=== PATIENT | female | born 1955 ===

== ENCOUNTER 2016-09-20 16:21 | Inpatient (IN) | payer MEDICARE, OTHER ==
[2016-09-20 16:33] VITALS: BMI 25.7
--- NOTE | 2016-09-20 16:50 | CT ---
PROCEDURE: CT HEAD WITHOUT CONTRAST. HISTORY: Code Stroke COMPARISON: None available. TECHNIQUE: Axial computed tomography images were obtained through the head/brain without intravenous contrast. Radiation dose: Total exam DLP = 858 mGy-cm. This CT exam was performed using one or more of the following dose reduction techniques: Automated exposure control, adjustment of the mA and/or kV according to patient size, and/or use of iterative reconstruction technique. FINDINGS: HEMORRHAGE: No intracranial hemorrhage. BRAIN: There are multiple hyperdense masses in the left frontal and parietal lobe in association with calcifications. These also involve the temporal lobe. There is mass effect with slight midline shift. No atrophy or chronic microvascular ischemic changes. VENTRICLES: Unremarkable. No hydrocephalus. CALVARIUM: Unremarkable. PARANASAL SINUSES: Unremarkable as visualized. No significant inflammatory changes. MASTOID AIR CELLS: Unremarkable as visualized. No inflammatory changes. OTHER FINDINGS: None. IMPRESSION: Multiple hyperdense masses within the left parietal, frontal and temporal lobe with calcifications and slight mass effect with midline shift. These are nonspecific in appearance. Findings could represent malignancy or a congenital/developmental abnormality. Recommend further evaluation with MRI of the brain with and without contrast. No intracranial hemorrhage.
[2016-09-20] MEDS ORDERED: Morphine 4 MG/ML VIAL ONE (16:55)
--- NOTE | 2016-09-20 16:59 | C.PDOC ---
History Of Present Illness Patient is a 61 year old female brought in by EMS for a complaint of AMS. Patient has a mild increased left facial droop and left body weakness. Patient has residual weakness from a prior stroke. Patient has been treated in the past by Dr. Martinez from neurology. Patient is currently complaining of a headache pain, denies any recent trauma, fever, nausea, or vomiting. Time Seen by Provider: 09/20/16 16:32 Chief Complaint (Nursing): Weakness/Neurological Deficit History Per: Patient, EMS History/Exam Limitations: no limitations Onset/Duration Of Symptoms: Hrs Current Symptoms Are (Timing): Still Present Recent travel outside of the [place]: No - Symptoms Of CVA Associated Symptoms: Other (Increased left facial droop, increased left sided weakness.). denies: New Vision Deficit(Left), New Vision Deficit(Right) Recent Aspirin Use: Unknown Current Coumadin Use?: Unknown Recent Head Trauma: No Past Medical History Reviewed: Historical Data, Nursing Documentation, Vital Signs Vital Signs: Last Vital Signs Temp 98.0 F 09/20/16 16:21 Pulse 77 09/20/16 17:13 Resp 18 09/20/16 17:13 BP 114/59 L 09/20/16 17:13 Pulse Ox 98 09/20/16 18:01 - Medical History PMH: CVA - [facility] Procedures RESECTION OF GALLBLADDER, PERCUTANEOUS ENDOSCOPIC APPROACH (10/08/15) Family History: States: Unknown Family Hx - Social History Hx Tobacco Use: No Hx Alcohol Use: No Hx Substance Use: No - Immunization History Hx Tetanus Toxoid Vaccination: No Hx Influenza Vaccination: No Hx Pneumococcal Vaccination: No Review Of Systems Except As Marked, All Systems Reviewed And Found Negative. Constitutional: Negative for: Fever Gastrointestinal: Negative for: Nausea, Vomiting Neurological: Positive for: Weakness (Left sided), Altered Mental Status, Other (Left sided facial droop) Physical Exam - Physical Exam Appears: Non-toxic Skin: Normal Color, Warm, Dry Head: Atraumatic, Normacephalic Eye(s): bilateral: Normal Inspection, PERRL, EOMI Oral Mucosa: Moist Chest: Symmetrical, No Tenderness Cardiovascular: Rhythm Regular, No Murmur Respiratory: Normal Breath Sounds, No Rales, No Rhonchi, No Wheezing Gastrointestinal/Abdominal: Soft, No Tenderness Extremity: Other (Normal strength x4 ) Neurological/Psych: Normal Speech, Other (Awake, alert. Left sided facial droop. ) ED Course And Treatment - Laboratory Results Result Diagrams: 09/20/16 16:52 09/20/16 16:52 Lab Interpretation: Normal (bnp/trop neg) ECG: Interpreted By Me ECG Rhythm: Sinus Rhythm ECG Interpretation: Normal Rate From EC O2 Sat by Pulse Oximetry: 98 (Room air) Pulse Ox Interpretation: Normal Progress Note: Code stroke called. EKG, blood work, CXR, and urinalysis ordered. Will call Dr. martinez to discuss patient. Reevaluation Time: 17:54 Reassessment Condition: Improved (headache improved, remains neuro intact) - Physician Consult Information Outcome Of Conversation: 1640 d/w NSGY- Dr. Bowers- no new findings, ok to tele obs, will follow. 1700: failed attempts to d/w pt's Neurologist- Mansoor Martinez. 1800: d/w Hospitalits- Dr. Montero- covering pt's for Dr. Oconnor- ok to Tele Obs NIHSS Stroke Scale - Date/Time Evaluation Performed Date Performed: 09/20/16 Time Performed: 16:20 When Was NIHSS Performed: Baseline - How Severe is the Stoke Level of Consciousness: 1=Drowsy LOC to Questions: 0=Both comments correct LOC to commands: 0=Obeys both correctly Best Gaze: 0=Normal Visual: 0=No visual loss Facial: 0=Normal Motor Arm - Left: 0=No drift Motor Arm - Right: 0=No drift Motor Leg - Left: 0=No drift Motor Leg - Right: 0=No drift Limb Ataxia: 0=Absent Sensory: 0=Normal Best Language: 1=Mild to moderate aphasia Dysarthia: 0=Normal articulation Extinction & Inattention (Neglect): 0=Normal, no object Score: 2 Severity Of Stroke: 1-4= Minor Stroke rTPA Inclusion/Exclusion - Refusal of Treatment Patient Refused Treatment: No - Inclusion Criteria for Altepase Patient is 18 years or Older: Yes The Clinical Diagnosis of Ischemic Stroke That is Causing a Potentially Disabling Neurological Deficit: No Time of Onset is Well Established to be Less Than 270 Minute Before Treatment Would Begin: No Risk/Benefit Discussed With Patient/Family Member Present: No - Exclusion Criteria for Altepase Uncontrolled Hypertension at Time of Treatment (Systolic BP above 185 or Diastolic BP above 110 mmHg): No History of: Vascular Malformation Active Internal Bleeding: No Known Bleeding Diathesis Including but Not Limited to: Platelets Below 100,000/ mm,PTT Above 40 sec After Heparin Use, Current Use of Oral Anitcoagulant With INR Greater Than 1.7 or PT Greater Than 15 secs: No Evidence of an Intracranial Hemorrhage: No Evidence of Major Acute Infarct With Signs Greater Than 1/3 MCA Territory: No - Warning to TPA With Conditions Following Conditions Weighed Against Anticipated Benefit: Yes Condition: Stroke Serevity Too Mild Medical Decision Making Medical Decision Making: ? mild change of mental status with large brain masses ? AVM's per NSGY read- no acute bleed but also no significant neuro changes on eval- TPA deferred Disposition Doctor Will See Patient In The: Hospital Counseled Patient/Family Regarding: Studies Performed, Diagnosis - Disposition Disposition: HOSPITALIZED Disposition Time: 17:57 Condition: GOOD - POA Core Measure Indicators: Code Stroke - Clinical Impression Clinical Impression: Headache, Brain mass - Scribe Statement The provider has reviewed the documentation as recorded by the Prestonibrashawn Guy All medical record entries made by the Chris were at my direction and personally dictated by me. I have reviewed the chart and agree that the record accurately reflects my personal performance of the history, physical exam, medical decision making, and the department course for this patient. I have also personally directed, reviewed, and agree with the discharge instructions and disposition.
[2016-09-20 17:00] LABS: BASO % 0.3 % (0.0-2.0); EOS % 0.1 % (0.0-4.0); HEMATOCRIT 42.7 % (34.0-47.0); LYMPH # 1.2 K/uL (1.0-4.3); MEAN CELL VOLUME 91.6 fL (81.0-99.0); MEAN CORPUSCULAR HEMOGLOBIN 31.1 pg (27.0-31.0); MEAN PLATELET VOLUME 8.9 fL (7.2-11.7); MONO # 0.4 K/uL (0.0-0.8); MONO % 4.7 % (0.0-10.0); RED CELL DISTRIBUTION WIDTH 13.2 % (11.5-14.5); WHITE BLOOD COUNT 9.3 K/uL (4.8-10.8)
[2016-09-20 17:09] LABS: CHLORIDE 95 mmol/L (98-107); SODIUM 133 mmol/L (132-148)
[2016-09-20 17:10] LABS: POTASSIUM 3.9 mmol/L (3.6-5.2)
[2016-09-20 17:11] LABS: CHOLESTEROL 240 mg/dL (0-199); GFR AFRICAN-AMERICAN > 60
[2016-09-20 17:12] LABS: ALB/GLOB RATIO 1.2 (1.0-2.1); ALKALINE PHOSPHATASE 86 U/L (38-126); ALT/SGPT 63 U/L (9-52); AST/SGOT 48 U/L (14-36); BILIRUBIN,TOTAL 0.6 mg/dL (0.2-1.3); BLOOD UREA NITROGEN 12 mg/dL (7-17); CARBON DIOXIDE 28 mmol/L (22-30); GLUCOSE,RANDOM 128 mg/dL (65-105)
--- NOTE | 2016-09-20 17:28 | RAD ---
HISTORY: adm COMPARISON: Chest x-ray performed 10/08/15 TECHNIQUE: Chest, one view. FINDINGS: LUNGS: Interstitial prominence may reflect infection or edema. Patchy airspace opacity at the left lung base with a suggestion of a small left pleural effusion. Right midlung atelectasis. No definite pneumothorax. CARDIOVASCULAR: Heart size appears top normal. OSSEOUS STRUCTURES: Mild degenerative changes. VISUALIZED UPPER ABDOMEN: Unremarkable. OTHER FINDINGS: None. IMPRESSION: Mild interstitial prominence may reflect infection or edema. Patchy airspace opacity at the left lung base with probable small left pleural effusion. Right midlung atelectasis.
[2016-09-20] MEDS ORDERED: Aspirin 325 mg EC Tablets PO STA (18:15)
--- NOTE | 2016-09-20 20:08 | CP.PCM.HP ---
<Todd Hernandez - Last Filed: 09/20/16 20:04> History of Present Illness - History of Present Illness History of Present Illness: cc: "worsened facial droop and weakness" HPI: Patient is a 61 year old female with PMHx of seizures, hx of CVA in 2004, AVMs that presented to the ED for worsening facial droop and weakness. Patient is awake and alert but unable to answer questions appropriately. Daughter at bedside giving history. Patient reported a headache around 9am today, which was relatively mild and similar to other headaches she normally has had. The daughter went to work and returned around noon to serve the patient lunch. At that time, the patient was complaining of a very severe headache, worse than she 's ever had. The daughter said that the patient had residual mild left sided facial droop and right UE and LE weakness from the previous stroke, but during lunch, she noticed that the facial worsened significantly, and that the patient was unable to lift the spoon to her mouth to drink the soup. At baseline, patient is, at times, forgetful and not fully oriented. On admission, patient did not know her own name, or her daughters name. She was able to identify that the person at bedside was her daughter, and recalled she had another daughter. Not oriented to time or place. Last visit to her neurologist, Dr. Mansoor Andrews, was about 2-3 months ago. Patient's AVM was followed at [facility], by a neurosurgeon , Dr. Charles Shanks, last seen 2-3 years ago, who said that he did not feel comfortable doing any surgeries for her due to the high risk of complications. PMHx: As stated above PSHx: Cholecystectomy Allergies: Denies Social hx: Hx of smoking for 40+ years ~ 1/2 ppd. Social alcohol use. Denies drug use. Lives at home with daughter. Previously ambulatory and active. Present on Admission - Present on Admission Any Indicators Present on Admission: No Review of Systems - Constitutional Constitutional: Headache. absent: Chills, Weight Loss, Weakness - Cardiovascular Cardiovascular: absent: Chest Pain, Claudication, Irregular Heart Rhythm, Leg Edema, Palpitations, Pedal Edema - Respiratory Respiratory: absent: Cough, Dyspnea, Hemoptysis, Dyspnea on Exertion, Wheezing - Gastrointestinal Gastrointestinal: absent: Abdominal Pain, Constipation, Diarrhea, Nausea, Vomiting - Genitourinary Genitourinary: absent: Difficulty Urinating, Dysuria - Musculoskeletal Musculoskeletal: absent: Myalgias, Numbness, Tingling - Integumentary Integumentary: absent: Sores, Striae, Swelling - Neurological Neurological: Abnormal Speech, Confusion, Focal Weakness, Headaches, Lack of Coordination, Memory Loss, Weakness. absent: Syncope, Tingling, Tremor - Psychiatric Psychiatric: absent: Anxiety, Panic Attacks, Suicidal Ideation - Endocrine Endocrine: absent: Fatigue, Palpitations Past Patient History - Past Medical History & Family History Past Medical History?: Yes - Past Social History Smoking Status: Former Smoker Chewing Tobacco Use: No Cigar Use: No Alcohol: None Drugs: Denies Home Situation {Lives}: With Family - CARDIAC Hx Cardiac Disorders: No - PULMONARY Hx Respiratory Disorders: No - NEUROLOGICAL HX Cerebrovascular Accident: Yes (2004 as per daughter) - HEMATOLOGICAL/ONCOLOGICAL Hx Blood Disorders: No - INTEGUMENTARY Hx Dermatological Problems: No - MUSCULOSKELETAL/RHEUMATOLOGICAL Hx Falls: No - GENITOURINARY/GYNECOLOGICAL Hx Genitourinary Disorders: No - PSYCHIATRIC Hx Substance Use: No - SURGICAL HISTORY Hx Surgeries: Yes Other/Comment: As per daughter, "they put clips from her leg into her brain" - ANESTHESIA Hx Anesthesia: Yes Hx Anesthesia Reactions: No Meds Allergies/Adverse Reactions: Allergies Allergy/AdvReac Type Severity Reaction Status Date / Time No Known Allergies Allergy Verified 10/07/15 00:35 Physical Exam - Constitutional Appears: Non-toxic, No Acute Distress - Head Exam Head Exam: ATRAUMATIC, NORMAL INSPECTION, NORMOCEPHALIC - Eye Exam Pupil Exam: NORMAL ACCOMODATION, PERRL - ENT Exam ENT Exam: Mucous Membranes Moist - Neck Exam Neck exam: Positive for: Normal Inspection - Respiratory Exam Respiratory Exam: Clear to Auscultation Bilateral, NORMAL BREATHING PATTERN. absent: Prolonged Expiratory Phase, Rales, Rhonchi, Wheezes - Cardiovascular Exam Cardiovascular Exam: REGULAR RHYTHM, +S1, +S2 - GI/Abdominal Exam GI & Abdominal Exam: Normal Bowel Sounds, Soft. absent: Distended, Firm, Tenderness - Extremities Exam Extremities exam: Positive for: normal capillary refill, pedal pulses present - Neurological Exam Neurological exam: Alert Additional comments: Patient not compliant with full exam due to altered state. Patient is alert and awake, not oriented. Does not answer questions appropriately. Mild facial droop observed. patient able to flex arms and legs. - Psychiatric Exam Psychiatric exam: Normal Affect, Normal Mood - Skin Skin Exam: Dry, Intact, Normal Color, Warm Results - Vital Signs Recent Vital Signs: Last Vital Signs Temp 98.0 F 09/20/16 16:21 Pulse 74 09/20/16 19:56 Resp 18 09/20/16 19:56 BP 104/65 09/20/16 19:56 Pulse Ox 95 09/20/16 19:56 - Labs Result Diagrams: 09/20/16 16:52 09/20/16 16:52 Assessment & Plan (1) Brain mass Status: Acute Comment: CT Head w/o contrast- 09/20/16- Multiple hyperdense masses within the left parietal, frontal and temporal lobe with calcifications and slight mass effect with midline shift. These are nonspecific in appearance. No intracranial hemorrhage (Please see full report. Consult Neurosurgery- Dr. Bowers. Consult Neuro- Dr. Junior- per Dr. Junior, Brain masses likely to be previously known AVMs, stroke symptoms possibly due to seizures. f/u Brain MRI w and w/o contrast. f/u Head MRA. NPO except meds until Swallow eval is completed. NS @ 75cc/hr (2) History of seizure Status: Chronic Comment: Consult Neuro- Dr. Junior. f/u dilantin levels. continue Dilantin 100mg TID. Patient will be given loading dose of Keppra 1gm IVPB , followed by Keppra 500mg IVPB Q12h (3) Prophylactic measure Status: Acute Comment: Pepcid 20mg PO BID. SCDs. contraindication for VTE- intracranial lesions <Wm Cevallos - Last Filed: 09/21/16 17:31> Results - Vital Signs Recent Vital Signs: Last Vital Signs Temp 98.9 F 09/21/16 15:43 Pulse 65 09/21/16 16:22 Resp 18 09/21/16 15:43 BP 101/62 09/21/16 15:43 Pulse Ox 96 09/21/16 15:43 - Labs Result Diagrams: 09/21/16 07:13 09/21/16 07:13 Labs: Laboratory Results - last 24 hr 09/20/16 09/21/16 09/21/16 21:22 06:50 07:13 WBC RBC Hgb Hct MCV MCH MCHC RDW Plt Count MPV Neut % (Auto) Lymph % (Auto) [place] % (Auto) Eos % (Auto) Baso % (Auto) Neut # Lymph # [place] # Eos # Baso # Sodium Potassium Chloride Carbon Dioxide Anion Gap BUN Creatinine Est GFR ( Amer) Est GFR (Non-Af Amer) POC Glucose (mg/dL) 113 H 94 Random Glucose Hemoglobin A1c Calcium Total Bilirubin AST ALT Alkaline Phosphatase Total Protein Albumin Globulin Albumin/Globulin Ratio TSH 3rd Generation Urine Color Urine Clarity Urine pH Ur Specific [place] Urine Protein Urine Glucose (UA) Urine Ketones Urine Blood Urine Nitrate Urine Bilirubin Urine Urobilinogen Ur Leukocyte Esterase Urine WBC (Auto) Urine RBC (Auto) Ur Squamous Epith Cells Phenytoin < 3.0 L 09/21/16 09/21/16 09/21/16 07:13 07:13 07:13 WBC 6.7 RBC 4.22 Hgb 13.1 Hct 38.9 MCV 92.3 MCH 30.9 MCHC 33.5 RDW 13.5 Plt Count 163 MPV 8.9 Neut % (Auto) 57.1 Lymph % (Auto) 31.6 [place] % (Auto) 9.2 Eos % (Auto) 1.7 Baso % (Auto) 0.4 Neut # 3.8 Lymph # 2.1 [facility] # 0.6 Eos # 0.1 Baso # 0.0 Sodium 136 Potassium 3.4 L Chloride 100 Carbon Dioxide 27 Anion Gap 12 BUN 11 Creatinine 0.7 Est GFR ( Amer) > 60 Est GFR (Non-Af Amer) > 60 POC Glucose (mg/dL) Random Glucose 100 Hemoglobin A1c 5.2 Calcium 8.2 L Total Bilirubin 0.6 AST 63 H D ALT 71 H Alkaline Phosphatase 74 Total Protein 6.8 Albumin 3.7 Globulin 3.1 Albumin/Globulin Ratio 1.2 TSH 3rd Generation 1.74 Urine Color Urine Clarity Urine pH Ur Specific [place] Urine Protein Urine Glucose (UA) Urine Ketones Urine Blood Urine Nitrate Urine Bilirubin Urine Urobilinogen Ur Leukocyte Esterase Urine WBC (Auto) Urine RBC (Auto) Ur Squamous Epith Cells Phenytoin 09/21/16 09/21/16 07:18 16:38 WBC RBC Hgb Hct MCV MCH MCHC RDW Plt Count MPV Neut % (Auto) Lymph % (Auto) [place] % (Auto) Eos % (Auto) Baso % (Auto) Neut # Lymph # [facility] # Eos # Baso # Sodium Potassium Chloride Carbon Dioxide Anion Gap BUN Creatinine Est GFR ( Amer) Est GFR (Non-Af Amer) POC Glucose (mg/dL) 107 Random Glucose Hemoglobin A1c Calcium Total Bilirubin AST ALT Alkaline Phosphatase Total Protein Albumin Globulin Albumin/Globulin Ratio TSH 3rd Generation Urine Color Yellow Urine Clarity Hazy Urine pH 5.0 Ur Specific [place] 1.020 Urine Protein Negative Urine Glucose (UA) Normal Urine Ketones Negative Urine Blood 1+ H Urine Nitrate Negative Urine Bilirubin Negative Urine Urobilinogen Normal Ur Leukocyte Esterase 1+ H Urine WBC (Auto) 6 H Urine RBC (Auto) 5 H Ur Squamous Epith Cells 8 H Phenytoin Attending/Attestation - Attestation I have personally seen and examined this patient.: Yes I have fully participated in the care of the patient.: Yes I have reviewed all pertinent clinical information: Yes Notes (Text): 09/21/16 17:31 Patient was seen and examined at bedside with the resident at the time of admission Patient is complaining of severe headache Patient has known history of for intracranial AVMs. It is inoperable as per the family at bedside. We have requested neurology and neurosurgical evaluation and we will follow up recommendations I discussed the plan of care with the resident and agree with the above history and physical and assessment/plan by the resident
[2016-09-20] MEDS: Sodium Chloride 0.9% 1,000 ML IV SCH (21:12)
--- NOTE | 2016-09-21 07:14 | CP.PCM.PN ---
<Comfort Larkin - Last Filed: 09/21/16 12:44> Subjective - Date & Time of Evaluation Date of Evaluation: 09/21/16 Time of Evaluation: 07:30 - Subjective Subjective: PGY1 Medicine note for Dr. Cevallos Patient seen and examined at bedside. Patient's family [two daughters] were at bedside. As per family, patient is more oriented this morning and she was able to identify self, time, and place and she also knew the names of her daughters. Patient continues to complain of 10/10 headache and associated dizziness and nausea. Patient denied any vomiting. Patient's family reported that morphine alone was not helping the headache. Patient denied any fever, chills, chest pain , palpitations, SOB, cough, abdominal pain, bowel/bladder complaints, pain in her legs, swelling in her legs. Objective - Vital Signs/Intake and Output Vital Signs (last 24 hours): Temp Pulse Resp BP Pulse Ox 98 F 72 20 108/72 95 09/21/16 05:35 09/21/16 05:35 09/21/16 05:35 09/21/16 05:35 09/21/16 05:35 - Medications Medications: Current Medications Famotidine (Pepcid) 20 mg PO BID [facility] Levetiracetam 500 mg/ Dextrose 105 mls @ 420 mls/hr IVPB Q12H [facility] Sodium Chloride (Sodium Chloride 0.9%) 1,000 mls @ 75 mls/hr IV .[id number] [facility] Last Admin: 09/20/16 21:12 Dose: 75 mls/hr Morphine Sulfate (Morphine) 2 mg IVP Q4 PRN PRN Reason: Pain, severe (8-10) Phenytoin Sodium (Dilantin) 100 mg PO TID [facility] - Labs Labs: PT 11.5 SECONDS (9.7-12.2) 09/20/16 16:52 INR 1.0 09/20/16 16:52 APTT 31 SECONDS (21-34) 09/20/16 16:52 - Constitutional Appears: Non-toxic, In Acute Distress (secondary to headache) - Head Exam Head Exam: NORMAL INSPECTION, NORMOCEPHALIC - Eye Exam Eye Exam: EOMI, Normal appearance, PERRL. absent: Conjunctival injection, Scleral icterus - ENT Exam ENT Exam: Mucous Membranes Moist - Neck Exam Neck Exam: Normal Inspection. absent: Lymphadenopathy, Tenderness - Respiratory Exam Respiratory Exam: Clear to Ausculation Bilateral. absent: Accessory Muscle Use , Rales, Rhonchi, Wheezes, Respiratory Distress - Cardiovascular Exam Cardiovascular Exam: REGULAR RHYTHM, RRR, +S1, +S2 - GI/Abdominal Exam GI & Abdominal Exam: Soft, Normal Bowel Sounds. absent: Firm, Guarding, Rigid, Tenderness - Extremities Exam Extremities Exam: Normal Capillary Refill, Normal Inspection. absent: Pedal Edema, Tenderness - Back Exam Back Exam: NORMAL INSPECTION. absent: rash noted, tenderness - Neurological Exam Neurological Exam: Alert, Awake, Oriented x3 Neuro motor strength exam: Left Upper Extremity: 4, Right Upper Extremity: 4, Left Lower Extremity: 4, Right Lower Extremity: 4 Additional comments: facial droop noted - Psychiatric Exam Psychiatric exam: Normal Affect - Skin Skin Exam: Dry, Intact, Normal Color, Warm Assessment and Plan - Assessment and Plan (Free Text) Assessment: 61 year old female with PMHx of seizures, hx of CVA in 2004, AVMs that presented to the ED for worsening facial droop and weakness Plan: (1) Large AV malformation -CT Head w/o contrast: Multiple hyperdense masses within the left parietal, frontal and temporal lobe with calcifications and slight mass effect with midline shift. These are nonspecific in appearance. No intracranial hemorrhage -As per neurosurgery Dr. Hyatt: no surgical intervention. Recommends optimal medical mgmt with seizure ppx and headache control and BP control and no anticoagulants -f/u Brain MRI w/ and w/o contrast -f/u Head MRA -Tylenol 650mg PO Q6 PRN mild pain -Percocet 5/325mg PO Q8H PRN mod pain -Morphine 2mg IVP Q4 PRN pain severe -Zofran 4mg IVP Q6H PRN nausea -Phenytoin 100mg PO TID -Crestor 20mg PO QHS -Keppra 500mg IVPB Q12 -Regular Diet -Neurosurgery consult: Dr. Bowers/Dr. Mcdonough -Neurology consult: Dr. Junior (2) History of seizure -Phenytoin level < 3 -Phenytoin 100mg PO TID -Keppra 500mg IVPB Q12 -Neurology consult: Dr. Junior (3) Hyperlipidemia -Cholesterol 240 -LDL 141 -HDL 62 -Crestor 20mg po QHS (4) External hemorrhoid -Hemorrhoidal ointment top (5) Prophylactic measure -Pepcid 20mg PO BID -VTE ppx c/i -SCDs -Regular diet -NS @ 75cc/hr -PT/OT -Speech therapy -Fall risk -Seizure precautions Plan discussed with Dr. Ban Larkin PGY1 <Wm Cevallos - Last Filed: 09/21/16 18:12> Objective - Vital Signs/Intake and Output Vital Signs (last 24 hours): Temp Pulse Resp BP Pulse Ox 98.9 F 65 18 101/62 96 09/21/16 15:43 09/21/16 16:22 09/21/16 15:43 09/21/16 15:43 09/21/16 15:43 Intake and Output: 09/21/16 09/21/16 06:59 18:59 Intake Total 840 Balance 840 - Medications Medications: Current Medications Acetaminophen (Tylenol 325mg Tab) 650 mg PO Q6 PRN PRN Reason: Pain, Mild (1-3) Last Admin: 09/21/16 13:43 Dose: 650 mg Famotidine (Pepcid) 20 mg PO BID [facility] Last Admin: 09/21/16 09:41 Dose: 20 mg Sodium Chloride (Sodium Chloride 0.9%) 1,000 mls @ 75 mls/hr IV .[id number] [facility] Last Admin: 09/21/16 09:57 Dose: 75 mls/hr Phenytoin 700 mg/ Sodium (Chloride) 264 mls @ 300 mls/hr IVPB STAT STA Stop: 09/21/16 18:16 Magnesium Sulfate/Dextrose (Magnesium Sulfate 1 Gm/100 Ml D5w) 1 gm in 100 mls @ 300 mls/hr IVPB Q30M [facility] Stop: 09/21/16 18:19 Levetiracetam (Keppra) 500 mg PO BID [facility] Morphine Sulfate (Morphine) 2 mg IVP Q4 PRN PRN Reason: Pain, severe (8-10) Last Admin: 09/21/16 09:43 Dose: 2 mg Multi-Ingredient Ointment (Prep-Hem) 0 ea TOP Q8H [facility] Last Admin: 09/21/16 13:52 Dose: Not Given Ondansetron HCl (Zofran Inj) 4 mg IVP Q6H PRN PRN Reason: Nausea/Vomiting Oxycodone/Acetaminophen (Percocet 5/325 Mg Tab) 1 tab PO Q8H PRN PRN Reason: Pain, moderate (4-7) Stop: 09/24/16 09:57 Phenytoin Sodium (Dilantin) 100 mg PO TID [facility] Last Admin: 09/21/16 13:43 Dose: 100 mg Rosuvastatin Calcium (Crestor) 20 mg PO HS [facility] - Labs Labs: 09/21/16 07:13 09/21/16 07:13 PT 11.5 SECONDS (9.7-12.2) 09/20/16 16:52 INR 1.0 09/20/16 16:52 APTT 31 SECONDS (21-34) 09/20/16 16:52 Attending/Attestation - Attestation I have personally seen and examined this patient.: Yes I have fully participated in the care of the patient.: Yes I have reviewed all pertinent clinical information, including history, physical exam and plan: Yes Notes (Text): 09/21/16 18:10 Patient was seen and examined at bedside with the resident today Patient complains of headache Family is at bedside. patient is awake alert and we have started the patient on diet I reviewed the recommendations of neurology and neurosurgery. Patient is not a candidate for neurosurgery As per recommendation of neurology we have started the patient on Keppra. We will also loaded the patient with Dilantin. I will also ordered magnesium sulfate and Decadron. Discharge planning when patient is medically stable and she will follow-up with outpatient with her primary neurologist.
[2016-09-21 07:27] LABS: BASO % 0.4 % (0.0-2.0); EOS # 0.1 K/uL (0.0-0.7); EOS % 1.7 % (0.0-4.0); HEMATOCRIT 38.9 % (34.0-47.0); LYMPH # 2.1 K/uL (1.0-4.3); LYMPH % 31.6 % (20.0-40.0); MEAN CELL VOLUME 92.3 fL (81.0-99.0); MEAN CORPUSCULAR HEMOGLOBIN 30.9 pg (27.0-31.0); MEAN CORPUSCULAR HGB CONC 33.5 g/dL (33.0-37.0); MEAN PLATELET VOLUME 8.9 fL (7.2-11.7); MONO # 0.6 K/uL (0.0-0.8); MONO % 9.2 % (0.0-10.0); NRBC % 0.1 % (0.0-2.0); RED CELL DISTRIBUTION WIDTH 13.5 % (11.5-14.5); WHITE BLOOD COUNT 6.7 K/uL (4.8-10.8)
[2016-09-21 08:05] LABS: RBC URINE 5 /hpf (0-3); URINE BILIRUBIN NEGATIVE (NEGATIVE); URINE BLOOD 1+ (NEGATIVE); URINE COLOR Yellow (YELLOW); URINE GLUCOSE (UA) NORMAL (Normal); URINE KETONE NEGATIVE (NEGATIVE); URINE LEUKOCYTE ESTERASE 1+ Leu/uL (Negative); URINE PROTEIN NEGATIVE (NEGATIVE); URINE UROBILINOGEN NORMAL mg/dL (0.2-1.0); WBC URINE 6 /hpf (0-5)
[2016-09-21 08:09] LABS: CHLORIDE 100 mmol/L (98-107); POTASSIUM 3.4 mmol/L (3.6-5.2); SODIUM 136 mmol/L (132-148)
[2016-09-21 08:11] LABS: ALB/GLOB RATIO 1.2 (1.0-2.1); AST/SGOT 63 U/L (14-36); BILIRUBIN,TOTAL 0.6 mg/dL (0.2-1.3); CARBON DIOXIDE 27 mmol/L (22-30); GFR AFRICAN-AMERICAN > 60; TOTAL PROTEIN 6.8 g/dL (6.3-8.3)
[2016-09-21 08:12] LABS: ALKALINE PHOSPHATASE 74 U/L (38-126); ALT/SGPT 71 U/L (9-52); BLOOD UREA NITROGEN 11 mg/dL (7-17); CALCIUM 8.2 mg/dl (8.6-10.4); GLUCOSE,RANDOM 100 mg/dL (65-105)
--- NOTE | 2016-09-21 08:40 | CP.PCM.CON ---
History of Present Illness - History of Present Illness History of Present Illness: consult dictated known huge inoperable dominant hemisphere AVM suggest antiseizure optimization med mgmt no NRS intervention possible Past Patient History - Past Medical History & Family History Past Medical History?: Yes - Past Social History Smoking Status: Former Smoker - CARDIAC Hx Cardiac Disorders: No - PULMONARY Hx Respiratory Disorders: No - NEUROLOGICAL Hx Neurological Disorder: Yes HX Cerebrovascular Accident: Yes (2005 as per daughter) Other/Comment: headaches - HEENT Hx HEENT Problems: No - RENAL Hx Chronic Kidney Disease: No - ENDOCRINE/METABOLIC Hx Endocrine Disorders: No - HEMATOLOGICAL/ONCOLOGICAL Hx Blood Disorders: No - INTEGUMENTARY Hx Dermatological Problems: No - MUSCULOSKELETAL/RHEUMATOLOGICAL Hx Musculoskeletal Disorders: Yes Hx Falls: Yes - GASTROINTESTINAL Hx Gastrointestinal Disorders: No Hx Hemorrhoids: Yes - GENITOURINARY/GYNECOLOGICAL Hx Genitourinary Disorders: No - PSYCHIATRIC Hx Psychophysiologic Disorder: No Hx Substance Use: No - SURGICAL HISTORY Hx Surgeries: Yes Hx Cholecystectomy: Yes Other/Comment: As per daughter, "they put clips from her leg into her brain". aneurysm surgery? - ANESTHESIA Hx Anesthesia: Yes Hx Anesthesia Reactions: No Meds Allergies/Adverse Reactions: Allergies Allergy/AdvReac Type Severity Reaction Status Date / Time No Known Allergies Allergy Verified 10/07/15 00:35 - Medications Medications: Current Medications Famotidine (Pepcid) 20 mg PO BID [facility] Levetiracetam 500 mg/ Dextrose 105 mls @ 420 mls/hr IVPB Q12H [facility] Sodium Chloride (Sodium Chloride 0.9%) 1,000 mls @ 75 mls/hr IV .[id number] [facility] Last Admin: 09/20/16 21:12 Dose: 75 mls/hr Morphine Sulfate (Morphine) 2 mg IVP Q4 PRN PRN Reason: Pain, severe (8-10) Phenytoin Sodium (Dilantin) 100 mg PO TID [facility] Results - Vital Signs Recent Vital Signs: Last Vital Signs Temp 98 F 09/21/16 05:35 Pulse 72 09/21/16 05:35 Resp 20 09/21/16 05:35 BP 108/72 09/21/16 05:35 Pulse Ox 95 09/21/16 05:35 - Labs Result Diagrams: 09/21/16 07:13 09/21/16 07:13 Labs: Laboratory Results - last 24 hr 09/20/16 09/21/16 09/21/16 21:22 06:50 07:13 WBC 6.7 RBC 4.22 Hgb 13.1 Hct 38.9 MCV 92.3 MCH 30.9 MCHC 33.5 RDW 13.5 Plt Count 163 MPV 8.9 Neut % (Auto) 57.1 Lymph % (Auto) 31.6 [place] % (Auto) 9.2 Eos % (Auto) 1.7 Baso % (Auto) 0.4 Neut # 3.8 Lymph # 2.1 [place] # 0.6 Eos # 0.1 Baso # 0.0 Sodium Potassium Chloride Carbon Dioxide Anion Gap BUN Creatinine Est GFR ( Amer) Est GFR (Non-Af Amer) POC Glucose (mg/dL) 113 H 94 Random Glucose Calcium Total Bilirubin AST ALT Alkaline Phosphatase Total Protein Albumin Globulin Albumin/Globulin Ratio Urine Color Urine Clarity Urine pH Ur Specific [place] Urine Protein Urine Glucose (UA) Urine Ketones Urine Blood Urine Nitrate Urine Bilirubin Urine Urobilinogen Ur Leukocyte Esterase Urine WBC (Auto) Urine RBC (Auto) Ur Squamous Epith Cells 09/21/16 09/21/16 07:13 07:18 WBC RBC Hgb Hct MCV MCH MCHC RDW Plt Count MPV Neut % (Auto) Lymph % (Auto) [place] % (Auto) Eos % (Auto) Baso % (Auto) Neut # Lymph # [place] # Eos # Baso # Sodium 136 Potassium 3.4 L Chloride 100 Carbon Dioxide 27 Anion Gap 12 BUN 11 Creatinine 0.7 Est GFR ( Amer) > 60 Est GFR (Non-Af Amer) > 60 POC Glucose (mg/dL) Random Glucose 100 Calcium 8.2 L Total Bilirubin 0.6 AST 63 H D ALT 71 H Alkaline Phosphatase 74 Total Protein 6.8 Albumin 3.7 Globulin 3.1 Albumin/Globulin Ratio 1.2 Urine Color Yellow Urine Clarity Hazy Urine pH 5.0 Ur Specific [place] 1.020 Urine Protein Negative Urine Glucose (UA) Normal Urine Ketones Negative Urine Blood 1+ H Urine Nitrate Negative Urine Bilirubin Negative Urine Urobilinogen Normal Ur Leukocyte Esterase 1+ H Urine WBC (Auto) 6 H Urine RBC (Auto) 5 H Ur Squamous Epith Cells 8 H
[2016-09-21 08:42] LABS: THYROID STIMULATING HORMONE 1.74 mIU/L (0.46-4.68)
[2016-09-21] MEDS ORDERED: Potassium Chloride 20 mEq ER Tab PO ONE (09:16)
[2016-09-21] MEDS ORDERED: Oxycodone/Acetaminophen 5/325 mg Tab PO PRN (09:56)
--- NOTE | 2016-09-21 09:56 | CON ---
DATE: 09/21/2016 This is a 61-year-old lady with a history of a known left hemispheric AVM who was admitted for new on set of severe headache, potential acute seizure and was admitted to the sixth floor. At the present time, she is complaining basically of headache. The patient salient history is that she has a known enormous dominant hemisphere AVM for many years. She was seen in consultation by Dr. Charles Tillman, a well-respected neurovascular surgeon wh o felt because of the size and location, it was inoperable. The rest of her past medical history, me dications, allergies, social history is all reviewed in the chart. PHYSICAL EXAMINATION: GENERAL: At this time, her eyes are open. She is awake and alert. She can tell me her name, that she is in the hospital. She follows all commands nicely. HEENT: Pupils are equal and reactive. EOMs are full. Face is symmetric. NEUROLOGIC: Lower cranial nerves are intact. EXTREMITIES: She moves all [address] done shows an enormous mass lesion occupying a good portion of the left posterior frontal region a nd parietal region. There is clear flow voids. There is calcification. There is mass effect. This is all consistent with a very large arteriovenous malformation. IMPRESSION AND PLAN: The patient has already seen in consultation with well-respected neurovascular surgeon, and was told unfortunately, there is really nothing that can be offered surgically because o f the size and location, and basically this is an inoperable arteriovenous malformation. I would ful ly concur. Therefore, my recommendation would be optimal medical management, i.e. at this point in t meseret, optimizing her anti-seizure prophylaxis or headache control, and appropriately controlling her b lood pressure, keeping her off of anticoagulants, etc. Markus Hyatt MD cc: [id number] TT: 09/21/2016 09:55:08 Confirmation # [id number] Dictation # [id number] dennis
[2016-09-21] MEDS: Sodium Chloride 0.9% 1,000 ML IV SCH (09:57)
--- NOTE | 2016-09-21 10:23 | CARD ---
APPROVED REPORT EKG Measurement Heart [id number] <Conclusion> Normal sinus rhythm Cannot rule out Anterior infarct, age undetermined Abnormal ECG
[2016-09-21] MEDS ORDERED: Gadodiamide 287 MG/ML VIAL (15ML) IV ONE (12:43)
[2016-09-21] MEDS: Hemorrohoidal Ointment (2 oz) TOP SCH ×3 (13:44→18:11)
--- NOTE | 2016-09-21 14:05 | MRI ---
PROCEDURE: MRI BRAIN WITH AND WITHOUT CONTRAST HISTORY: AVMs , mass effect COMPARISON: Comparison is made to the previous CT of the head dated 09/20/2016 TECHNIQUE: Multiplanar, multisequence MR images of the brain were obtained with and without intravenous contrast enhancement. FINDINGS: HEMORRHAGE: There are foci of flow void signal and hypo intense T2 and T1 signal at the left temporal parietal lobe suggestive of large AVM. No evidence of significant foci of hyperintense T1 signal in the brain to suggest acute or subacute hemorrhage. DWI: No evidence of an acute or early subacute infarction. BRAIN PARENCHYMA: Mild mass effect on the posterior aspect of the left lateral ventricle is noted. Mild plsw-[id number] midline shift measures approximately 6 millimeter. No atrophy or chronic microvascular ischemic changes. ENHANCEMENT: No evidence of enhancing solid mass in the brain. Linear enhancement seen in the left temporal parietal AVM especially in the largest drainage vein. VENTRICLES: Unremarkable. No hydrocephalus. CRANIUM: Unremarkable. ORBITS: Grossly unremarkable. PARANASAL SINUSES/MASTOIDS: Clear VASCULAR SYSTEM: Skull base flow voids intact. OTHER FINDINGS: None . IMPRESSION: Large left temporal parietal AVM with large drainage vein extending to the posterior aspect of the sagittal dural sinus. The AVM resulting in mild mass effect on the posterior left lateral ventricle and mild [id number] midline shift measures approximately 6 millimeter. No MRI evidence of acute intracranial hemorrhage or other acute pathology.
--- NOTE | 2016-09-21 14:46 | MRI ---
PROCEDURE: Magnetic Resonance Angiography Brain HISTORY: AVMs COMPARISON: None available. TECHNIQUE: 3D time of flight MR angiography of the intracranial arteries was performed. Rotating maximum intensity projection images were generated. FINDINGS: INTERNAL CEREBRAL ARTERIES: Unremarkable. The skull base, petrous, cavernous and supraclinoid segments are bilaterally widely patient. ANTERIOR CEREBRAL ARTERIES: Unremarkable. A1 and A2 segments are widely patent. Smaller distal branches unremarkable, as visualized. MIDDLE CEREBRAL ARTERIES: Unremarkable. M1 and M2 segments are widely patent. Perisylvian branches grossly symmetric. POSTERIOR CIRCULATION: Basilar Artery: Unremarkable. Distal Vertebral Arteries: Unremarkable. Posterior Cerebral Arteries: Unremarkable. Posterior Inferior Cerebellar Arteries: Unremarkable. ANEURYSM/ VASCULAR MALFORMATIONS: None. OTHER FINDINGS: Again seen is large left temporal parietal AVM. There are multiple feeding arteries to this AVM arise from the left middle cerebral left distal internal carotid and left posterior cerebral arteries. Large drainage vein seen extending to the sagittal dural sinus. IMPRESSION: No evidence of hemodynamically significant stenosis or occlusion in the intracranial arteries. The left middle anterior and posterior cerebral arteries are larger than the right. Large size left temporal parietal AVM .
--- NOTE | 2016-09-21 16:44 | CP.PCM.CON ---
History of Present Illness - History of Present Illness History of Present Illness: Mrs. 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 Neurosurgical intervention is not recommended due to location and complexity. Yesterday, the patient presented with symptoms of right facial droop , aphasia, lethargy and confusion as well as right sided weakness that gradually improved. MRI/MRA of the brain showed the AVM with multiple draining and feeding vessels, but no acute hemorrhage, infarct or significant edema/ midline shift. The patient is essentially back to baseline now, but complains of a headache. She had no other complaints at this time. Review of Systems - Review of Systems All systems: reviewed and no additional remarkable complaints except Past Patient History - Past Medical History & Family History Past Medical History?: Yes - Past Social History Smoking Status: Former Smoker - CARDIAC Hx Cardiac Disorders: No - PULMONARY Hx Respiratory Disorders: No - NEUROLOGICAL HX Cerebrovascular Accident: Yes - HEENT Hx HEENT Problems: No - RENAL Hx Chronic Kidney Disease: No - ENDOCRINE/METABOLIC Hx Endocrine Disorders: No - HEMATOLOGICAL/ONCOLOGICAL Hx Blood Disorders: No - INTEGUMENTARY Hx Dermatological Problems: No - MUSCULOSKELETAL/RHEUMATOLOGICAL Hx Musculoskeletal Disorders: Yes Hx Falls: Yes - GASTROINTESTINAL Hx Gastrointestinal Disorders: No Hx Hemorrhoids: Yes - GENITOURINARY/GYNECOLOGICAL Hx Genitourinary Disorders: No - PSYCHIATRIC Hx Psychophysiologic Disorder: No Hx Substance Use: No - SURGICAL HISTORY Hx Surgeries: Yes Hx Cholecystectomy: Yes Other/Comment: As per daughter, "they put clips from her leg into her brain". aneurysm surgery? - ANESTHESIA Hx Anesthesia: Yes Hx Anesthesia Reactions: No Meds Allergies/Adverse Reactions: Allergies Allergy/AdvReac Type Severity Reaction Status Date / Time No Known Allergies Allergy Verified 10/07/15 00:35 - Medications Medications: Current Medications Acetaminophen (Tylenol 325mg Tab) 650 mg PO Q6 PRN PRN Reason: Pain, Mild (1-3) Last Admin: 09/21/16 13:43 Dose: 650 mg Famotidine (Pepcid) 20 mg PO BID [facility] Last Admin: 09/21/16 09:41 Dose: 20 mg Levetiracetam 500 mg/ Dextrose 105 mls @ 420 mls/hr IVPB Q12H [facility] Last Admin: 09/21/16 09:45 Dose: 420 mls/hr Sodium Chloride (Sodium Chloride 0.9%) 1,000 mls @ 75 mls/hr IV .[id number] [facility] Last Admin: 09/21/16 09:57 Dose: 75 mls/hr Morphine Sulfate (Morphine) 2 mg IVP Q4 PRN PRN Reason: Pain, severe (8-10) Last Admin: 09/21/16 09:43 Dose: 2 mg Multi-Ingredient Ointment (Prep-Hem) 0 ea TOP Q8H [facility] Last Admin: 09/21/16 13:52 Dose: Not Given Ondansetron HCl (Zofran Inj) 4 mg IVP Q6H PRN PRN Reason: Nausea/Vomiting Oxycodone/Acetaminophen (Percocet 5/325 Mg Tab) 1 tab PO Q8H PRN PRN Reason: Pain, moderate (4-7) Stop: 09/24/16 09:57 Phenytoin Sodium (Dilantin) 100 mg PO TID [facility] Last Admin: 09/21/16 13:43 Dose: 100 mg Rosuvastatin Calcium (Crestor) 20 mg PO HS [facility] Physical Exam - Constitutional Appears: No Acute Distress - Head Exam Head Exam: ATRAUMATIC, NORMAL INSPECTION, NORMOCEPHALIC - Eye Exam Eye Exam: EOMI, Normal appearance, PERRL - ENT Exam ENT Exam: Mucous Membranes Moist, Normal Exam - Neck Exam Neck exam: Positive for: Normal Inspection - Respiratory Exam Respiratory Exam: Clear to Auscultation Bilateral, NORMAL BREATHING PATTERN - Cardiovascular Exam Cardiovascular Exam: REGULAR RHYTHM, +S1, +S2 - GI/Abdominal Exam GI & Abdominal Exam: Normal Bowel Sounds, Soft. absent: Tenderness - Neurological Exam Neurological exam: Abnormal Gait, Alert, CN II-XII Intact, Oriented x3 Additional comments: Motor strength is diminished on the right side as compared to the left (4/5 proximally and distally), reflexes are brisk with upgoing plantar response on the right side, sensation is diminished on the right face, arm and leg as compared with the left. Gait is wide-based and slow with abnormal turning radius. NIHSS= 4. - Psychiatric Exam Psychiatric exam: Normal Affect, Normal Mood - Skin Skin Exam: Dry, Intact, Normal Color, Warm Results - Vital Signs Recent Vital Signs: Last Vital Signs Temp 98.9 F 09/21/16 15:43 Pulse 65 09/21/16 16:15 Resp 18 09/21/16 15:43 BP 101/62 09/21/16 15:43 Pulse Ox 96 09/21/16 15:43 - Labs Result Diagrams: 09/21/16 07:13 09/21/16 07:13 Labs: Laboratory Results - last 24 hr 09/20/16 09/21/16 09/21/16 21:22 06:50 07:13 WBC RBC Hgb Hct MCV MCH MCHC RDW Plt Count MPV Neut % (Auto) Lymph % (Auto) [place] % (Auto) Eos % (Auto) Baso % (Auto) Neut # Lymph # [place] # Eos # Baso # Sodium Potassium Chloride Carbon Dioxide Anion Gap BUN Creatinine Est GFR ( Amer) Est GFR (Non-Af Amer) POC Glucose (mg/dL) 113 H 94 Random Glucose Hemoglobin A1c Calcium Total Bilirubin AST ALT Alkaline Phosphatase Total Protein Albumin Globulin Albumin/Globulin Ratio TSH 3rd Generation Urine Color Urine Clarity Urine pH Ur Specific [place] Urine Protein Urine Glucose (UA) Urine Ketones Urine Blood Urine Nitrate Urine Bilirubin Urine Urobilinogen Ur Leukocyte Esterase Urine WBC (Auto) Urine RBC (Auto) Ur Squamous Epith Cells Phenytoin < 3.0 L 09/21/16 09/21/16 09/21/16 07:13 07:13 07:13 WBC 6.7 RBC 4.22 Hgb 13.1 Hct 38.9 MCV 92.3 MCH 30.9 MCHC 33.5 RDW 13.5 Plt Count 163 MPV 8.9 Neut % (Auto) 57.1 Lymph % (Auto) 31.6 [place] % (Auto) 9.2 Eos % (Auto) 1.7 Baso % (Auto) 0.4 Neut # 3.8 Lymph # 2.1 [place] # 0.6 Eos # 0.1 Baso # 0.0 Sodium 136 Potassium 3.4 L Chloride 100 Carbon Dioxide 27 Anion Gap 12 BUN 11 Creatinine 0.7 Est GFR ( Amer) > 60 Est GFR (Non-Af Amer) > 60 POC Glucose (mg/dL) Random Glucose 100 Hemoglobin A1c 5.2 Calcium 8.2 L Total Bilirubin 0.6 AST 63 H D ALT 71 H Alkaline Phosphatase 74 Total Protein 6.8 Albumin 3.7 Globulin 3.1 Albumin/Globulin Ratio 1.2 TSH 3rd Generation 1.74 Urine Color Urine Clarity Urine pH Ur Specific [place] Urine Protein Urine Glucose (UA) Urine Ketones Urine Blood Urine Nitrate Urine Bilirubin Urine Urobilinogen Ur Leukocyte Esterase Urine WBC (Auto) Urine RBC (Auto) Ur Squamous Epith Cells Phenytoin 09/21/16 07:18 WBC RBC Hgb Hct MCV MCH MCHC RDW Plt Count MPV Neut % (Auto) Lymph % (Auto) [place] % (Auto) Eos % (Auto) Baso % (Auto) Neut # Lymph # [place] # Eos # Baso # Sodium Potassium Chloride Carbon Dioxide Anion Gap BUN Creatinine Est GFR ( Amer) Est GFR (Non-Af Amer) POC Glucose (mg/dL) Random Glucose Hemoglobin A1c Calcium Total Bilirubin AST ALT Alkaline Phosphatase Total Protein Albumin Globulin Albumin/Globulin Ratio TSH 3rd Generation Urine Color Yellow Urine Clarity Hazy Urine pH 5.0 Ur Specific [place] 1.020 Urine Protein Negative Urine Glucose (UA) Normal Urine Ketones Negative Urine Blood 1+ H Urine Nitrate Negative Urine Bilirubin Negative Urine Urobilinogen Normal Ur Leukocyte Esterase 1+ H Urine WBC (Auto) 6 H Urine RBC (Auto) 5 H Ur Squamous Epith Cells 8 H Phenytoin - Imaging and Cardiology MRI - head Status: Image reviewed by me, Report reviewed by me (Large left temporal and parietal lobe AVM with dilated veins and draining vessels and possible aneurysmal dilatation of vessels. Mild edema and slight shift. No hemorrhage.) Assessment & Plan (1) AVM (arteriovenous malformation) brain Assessment and Plan: The seizures and headache are a result of this lesion and should be treated symptomatically since there is no surgical option at this point. I recommend adding Keppra at 500 mg BID and loading with dilantin to achieve therapeutic dose. The patient's dilantin level was sub-therapeutic and it may be due to non -compliance or medication interaction. I recommend loading with 10 mg/Kg of Dilantin (then continue 100 mg TID), and continue Keppra 500 mg BID. The headache may respond to Magnesium Sulfate 2 grams IV ONCE and Decadron 10 mg IV ONCE. An endovascular neurosurgical consultation is recommended for possible embolization and second opinion. Continue conservative management. Status: Chronic Priority: High
[2016-09-21] MEDS ORDERED: SODIUM CHLORIDE 0.9% IVPB STA (17:24)
[2016-09-21] MEDS ORDERED: PHENYTOIN IVPB STA (17:24)
[2016-09-21] MEDS: Magnesium Sulfate 1 gm in D5W 1 GM/100 ML BAG IVPB SCH ×2 (18:12→19:44)
[2016-09-22] MEDS: Hemorrohoidal Ointment (2 oz) TOP SCH ×4 (02:00→22:17)
[2016-09-22 07:18] LABS: BASO % 0.2 % (0.0-2.0); HEMATOCRIT 39.7 % (34.0-47.0); LYMPH # 0.9 K/uL (1.0-4.3); LYMPH % 17.4 % (20.0-40.0); MEAN CORPUSCULAR HEMOGLOBIN 30.7 pg (27.0-31.0); MEAN PLATELET VOLUME 9.1 fL (7.2-11.7); MONO # 0.1 K/uL (0.0-0.8); MONO % 2.7 % (0.0-10.0); NRBC % 0.1 % (0.0-2.0); RED CELL DISTRIBUTION WIDTH 13.5 % (11.5-14.5); WHITE BLOOD COUNT 4.9 K/uL (4.8-10.8)
--- NOTE | 2016-09-22 07:29 | CP.PCM.PN ---
Addendum entered and electronically signed by Comfort Larkin 09/22/16 17:15: Patient is constipated- Colace 100mg po daily Original Note: <Comfort Larkin - Last Filed: 09/22/16 16:14> Subjective - Date & Time of Evaluation Date of Evaluation: 09/22/16 Time of Evaluation: 10:00 - Subjective Subjective: PGY1 Medicine note for Dr. Cevallos Patient seen and examined at bedside. Patient was AO x 3 this morning and her speech had improved. She continues to complain of a headache and nausea but reports it has improved since yesterday. She was eager to eat this morning which is an improvement from last night when she threw up. Patient denied any fever, chills, chest pain, palpitations, SOB, cough, abdominal pain, bowel/ bladder complaints, pain in her legs, swelling in her legs. Patient's family is open to her going to [facility] after discharge. Objective - Vital Signs/Intake and Output Vital Signs (last 24 hours): Temp Pulse Resp BP Pulse Ox 97.4 F L 78 20 101/67 95 09/22/16 04:44 09/22/16 04:44 09/22/16 04:44 09/22/16 04:44 09/22/16 04:44 Intake and Output: 09/22/16 09/22/16 06:59 18:59 Intake Total 1320 Output Total 550 Balance 770 - Medications Medications: Current Medications Acetaminophen (Tylenol 325mg Tab) 650 mg PO Q6 PRN PRN Reason: Pain, Mild (1-3) Last Admin: 09/21/16 13:43 Dose: 650 mg Famotidine (Pepcid) 20 mg PO BID [facility] Last Admin: 09/21/16 18:11 Dose: 20 mg Sodium Chloride (Sodium Chloride 0.9%) 1,000 mls @ 75 mls/hr IV .[id number] [facility] Last Admin: 09/21/16 09:57 Dose: 75 mls/hr Levetiracetam (Keppra) 500 mg PO BID [facility] Last Admin: 09/21/16 18:11 Dose: 500 mg Morphine Sulfate (Morphine) 2 mg IVP Q4 PRN PRN Reason: Pain, severe (8-10) Last Admin: 09/21/16 09:43 Dose: 2 mg Multi-Ingredient Ointment (Prep-Hem) 0 ea TOP Q8H [facility] Ondansetron HCl (Zofran Inj) 4 mg IVP Q6H PRN PRN Reason: Nausea/Vomiting Oxycodone/Acetaminophen (Percocet 5/325 Mg Tab) 1 tab PO Q8H PRN PRN Reason: Pain, moderate (4-7) Stop: 09/24/16 09:57 Phenytoin Sodium (Dilantin) 100 mg PO TID [facility] Last Admin: 09/21/16 18:11 Dose: 100 mg Rosuvastatin Calcium (Crestor) 20 mg PO HS [facility] Last Admin: 09/21/16 21:57 Dose: 20 mg - Labs Labs: 09/22/16 07:05 09/21/16 07:13 PT 11.5 SECONDS (9.7-12.2) 09/20/16 16:52 INR 1.0 09/20/16 16:52 APTT 31 SECONDS (21-34) 09/20/16 16:52 - Constitutional Appears: Non-toxic, No Acute Distress - Head Exam Head Exam: NORMAL INSPECTION - Eye Exam Eye Exam: EOMI, Normal appearance, PERRL. absent: Conjunctival injection, Scleral icterus - ENT Exam ENT Exam: Mucous Membranes Moist - Neck Exam Neck Exam: Normal Inspection. absent: Lymphadenopathy, Tenderness - Respiratory Exam Respiratory Exam: Clear to Ausculation Bilateral, NORMAL BREATHING PATTERN. absent: Accessory Muscle Use, Rales, Rhonchi, Wheezes, Respiratory Distress - Cardiovascular Exam Cardiovascular Exam: REGULAR RHYTHM, RRR, +S1, +S2. absent: Murmur - GI/Abdominal Exam GI & Abdominal Exam: Soft, Normal Bowel Sounds. absent: Firm, Guarding, Rigid, Tenderness - Rectal Exam Rectal Exam: Deferred - Extremities Exam Extremities Exam: Normal Inspection. absent: Pedal Edema, Tenderness - Back Exam Back Exam: NORMAL INSPECTION. absent: rash noted - Neurological Exam Neurological Exam: Alert, Awake, CN II-XII Intact, Oriented x3 Neuro motor strength exam: Left Upper Extremity: 4, Right Upper Extremity: 4, Left Lower Extremity: 4, Right Lower Extremity: 4 - Psychiatric Exam Psychiatric exam: Normal Affect, Normal Mood - Skin Skin Exam: Dry, Intact, Normal Color, Warm Assessment and Plan - Assessment and Plan (Free Text) Assessment: 61 year old female with PMHx of seizures, hx of CVA in 2004, AVMs that presented to the ED for worsening facial droop and weakness Plan: (1) Large AV malformation -CT Head w/o contrast: Multiple hyperdense masses within the left parietal, frontal and temporal lobe with calcifications and slight mass effect with midline shift. These are nonspecific in appearance. No intracranial hemorrhage -As per neurosurgery Dr. Hyatt: no surgical intervention. Recommends optimal medical mgmt with seizure ppx and headache control and BP control and no anticoagulants -Brain MRI w/ and w/o contrast: large left temporal pariental AVM with large draining vein extending to the posterior aspect of the sagittal dural sinus; AVM resulting in mild mass effect on the posterior left lateral ventricle and mild left to right midline shift measures approx 6mm; no MRI evidence of acute intracranial hemorrhage or acute pathology -Head MRA: no evidence of hemodynamically significant stenosis/occlusion in intracranial arteries; Left middle anterior and posterior cerebral arteries are larger than the right; large size L temporal parietal AVM -Tylenol 650mg PO Q6 PRN mild pain -Percocet 5/325mg PO Q8H PRN mod pain -Morphine 2mg IVP Q4 PRN pain severe -Zofran 4mg IVP Q6H PRN nausea -Phenytoin 100mg PO TID -Crestor 20mg PO QHS -Keppra 500mg IVPB Q12 -Regular Diet -Patient was given 1 dose of IV Magsulfate and IV decadron on 09/21 for headache as per Dr. Junior [facility] -Neurosurgery consult: Dr. Bowers/Dr. Mcdonough -Neurology consult: Dr. Junior (2) History of seizure -Phenytoin level < 3 -Phenytoin 100mg PO TID -Keppra 500mg IVPB Q12 -Neurology consult: Dr. Junior (3) Hyperlipidemia -Cholesterol 240 -LDL 141 -HDL 62 -Crestor 20mg po QHS (4) External hemorrhoid -Hemorrhoidal ointment top (5) Prophylactic measure -Pepcid 20mg PO BID -VTE ppx c/i -SCDs -Regular diet -NS @ 75cc/hr -PT/OT -Speech therapy -Fall risk -Seizure precautions -Discharge to [facility] with placement Plan discussed with Dr. Ban Larkin PGY1 <Wm Cevallos - Last Filed: 09/22/16 18:11> Objective - Vital Signs/Intake and Output Vital Signs (last 24 hours): Temp Pulse Resp BP Pulse Ox 98.2 F 75 18 137/62 96 09/22/16 15:45 09/22/16 15:45 09/22/16 15:45 09/22/16 15:45 09/22/16 15:45 - Medications Medications: Current Medications Acetaminophen (Tylenol 325mg Tab) 650 mg PO Q6 PRN PRN Reason: Pain, Mild (1-3) Last Admin: 09/21/16 13:43 Dose: 650 mg Docusate Sodium (Colace) 100 mg PO DAILY [facility] Last Admin: 09/22/16 17:41 Dose: 100 mg Famotidine (Pepcid) 20 mg PO BID [facility] Last Admin: 09/22/16 17:41 Dose: 20 mg Sodium Chloride (Sodium Chloride 0.9%) 1,000 mls @ 75 mls/hr IV .[id number] [facility] Last Admin: 09/22/16 07:33 Dose: 75 mls/hr Levetiracetam (Keppra) 500 mg PO BID [facility] Last Admin: 09/22/16 17:41 Dose: 500 mg Morphine Sulfate (Morphine) 2 mg IVP Q4 PRN PRN Reason: Pain, severe (8-10) Last Admin: 09/21/16 09:43 Dose: 2 mg Multi-Ingredient Ointment (Prep-Hem) 0 ea TOP Q8 [facility] Last Admin: 09/22/16 13:17 Dose: 1 applic Ondansetron HCl (Zofran Inj) 4 mg IVP Q6H PRN PRN Reason: Nausea/Vomiting Last Admin: 09/22/16 17:41 Dose: 4 mg Oxycodone/Acetaminophen (Percocet 5/325 Mg Tab) 1 tab PO Q8H PRN PRN Reason: Pain, moderate (4-7) Stop: 09/24/16 09:57 Phenytoin Sodium (Dilantin) 100 mg PO TID [facility] Last Admin: 09/22/16 17:41 Dose: 100 mg Rosuvastatin Calcium (Crestor) 20 mg PO HS [facility] Last Admin: 09/21/16 21:57 Dose: 20 mg - Labs Labs: PT 11.5 SECONDS (9.7-12.2) 05/08/17 16:52 INR 1.0 09/20/16 16:52 APTT 31 SECONDS (21-34) 09/20/16 16:52 Attending/Attestation - Attestation I have personally seen and examined this patient.: Yes I have fully participated in the care of the patient.: Yes I have reviewed all pertinent clinical information, including history, physical exam and plan: Yes Notes (Text): 09/22/16 18:09 Patient was seen and examined at bedside. She complains of for headache but states that it is improving Patient is able to tolerate diet We will continue current medical management Neurology follow-up seen in appreciated. Discussed with Dr. Junior and patient may be referred for endovascular neurosurgical evaluation for embolization. Discharge planning is in progress.
[2016-09-22] MEDS: Sodium Chloride 0.9% 1,000 ML IV SCH (07:33)
[2016-09-22 07:47] LABS: CHLORIDE 102 mmol/L (98-107); POTASSIUM 4.1 mmol/L (3.6-5.2); SODIUM 135 mmol/L (132-148)
[2016-09-22 07:49] LABS: GFR AFRICAN-AMERICAN > 60
[2016-09-22 08:22] LABS: ALB/GLOB RATIO 1.1 (1.0-2.1); ALKALINE PHOSPHATASE 75 U/L (38-126); ALT/SGPT 66 U/L (9-52); AST/SGOT 48 U/L (14-36); BILIRUBIN,TOTAL 0.5 mg/dL (0.2-1.3); BLOOD UREA NITROGEN 8 mg/dL (7-17); CALCIUM 8.1 mg/dl (8.6-10.4); CARBON DIOXIDE 26 mmol/L (22-30); GLUCOSE,RANDOM 138 mg/dL (65-105); MAGNESIUM 2.7 mg/dL (1.6-2.3); PHOSPHOROUS 3.3 mg/dL (2.5-4.5); TOTAL PROTEIN 7.1 g/dL (6.3-8.3)
[2016-09-23] MEDS: Sodium Chloride 0.9% 1,000 ML IV SCH ×2 (01:20→04:25)
[2016-09-23 01:43] VITALS: RESP 20
[2016-09-23] MEDS: Hemorrohoidal Ointment (2 oz) TOP SCH (06:03)
[2016-09-23 07:53] LABS: BASO % 0.4 % (0.0-2.0); EOS # 0.1 K/uL (0.0-0.7); EOS % 1.8 % (0.0-4.0); LYMPH # 3.2 K/uL (1.0-4.3); LYMPH % 39.1 % (20.0-40.0); MEAN CELL VOLUME 93.3 fL (81.0-99.0); MEAN CORPUSCULAR HEMOGLOBIN 30.9 pg (27.0-31.0); MEAN CORPUSCULAR HGB CONC 33.1 g/dL (33.0-37.0); MONO # 0.8 K/uL (0.0-0.8); MONO % 9.9 % (0.0-10.0); NRBC % 0.1 % (0.0-2.0); RED CELL DISTRIBUTION WIDTH 13.7 % (11.5-14.5)
[2016-09-23 08:03] LABS: CHLORIDE 104 mmol/L (98-107); WHITE BLOOD COUNT 8.2 K/uL (4.8-10.8)
[2016-09-23 08:04] LABS: POTASSIUM 3.7 mmol/L (3.6-5.2); SODIUM 137 mmol/L (132-148)
[2016-09-23 08:06] LABS: ALB/GLOB RATIO 1.1 (1.0-2.1); ALKALINE PHOSPHATASE 67 U/L (38-126); ALT/SGPT 48 U/L (9-52); AST/SGOT 27 U/L (14-36); BILIRUBIN,TOTAL 0.5 mg/dL (0.2-1.3); BLOOD UREA NITROGEN 9 mg/dL (7-17); CARBON DIOXIDE 26 mmol/L (22-30); GFR AFRICAN-AMERICAN > 60; GLUCOSE,RANDOM 87 mg/dL (65-105); TOTAL PROTEIN 6.4 g/dL (6.3-8.3)
[2016-09-23 08:07] LABS: CALCIUM 7.6 mg/dl (8.6-10.4); MAGNESIUM 2.3 mg/dL (1.6-2.3); PHOSPHOROUS 2.4 mg/dL (2.5-4.5)
--- NOTE | 2016-09-23 11:42 | CP.PCM.PN ---
Subjective - Date & Time of Evaluation Date of Evaluation: 09/23/16 Time of Evaluation: 06:45 - Subjective Subjective: PGY1 Medicine note for Dr. Cevallos Patient seen and examined at bedside. Patient was AO x 3 again this morning. She states that she is no longer constipated and had 2 BMs yesterday which were loose and non-bloody. She had one episode of emesis yesterday, but states she is feeling less nauseous and has been able to eat more. Patient states she had a headache briefly in the morning, but it resolved without medical intervention. Patient denied any fever, chills, chest pain, palpitations, SOB, cough, abdominal pain, bowel/bladder complaints, pain in her legs, swelling in her legs. Patient and patient's family is open to her going to [facility] after discharge. Objective - Vital Signs/Intake and Output Vital Signs (last 24 hours): Temp Pulse Resp BP Pulse Ox 98.1 F 69 20 105/64 94 L 09/23/16 09:15 09/23/16 09:21 09/23/16 09:15 09/23/16 09:15 09/23/16 04:38 Intake and Output: 09/23/16 09/23/16 06:59 18:59 Intake Total 920 Balance 920 - Medications Medications: Current Medications Acetaminophen (Tylenol 325mg Tab) 650 mg PO Q6 PRN PRN Reason: Pain, Mild (1-3) Last Admin: 09/21/16 13:43 Dose: 650 mg Docusate Sodium (Colace) 100 mg PO DAILY [facility] Last Admin: 09/23/16 10:16 Dose: 100 mg Famotidine (Pepcid) 20 mg PO BID [facility] Last Admin: 09/23/16 10:20 Dose: 20 mg Sodium Chloride (Sodium Chloride 0.9%) 1,000 mls @ 75 mls/hr IV .[id number] [facility] Last Admin: 09/23/16 04:25 Dose: 75 mls/hr Levetiracetam (Keppra) 500 mg PO BID [facility] Last Admin: 09/23/16 10:16 Dose: 500 mg Morphine Sulfate (Morphine) 2 mg IVP Q4 PRN PRN Reason: Pain, severe (8-10) Last Admin: 09/21/16 09:43 Dose: 2 mg Multi-Ingredient Ointment (Prep-Hem) 0 ea TOP Q8 [facility] Last Admin: 09/23/16 06:03 Dose: 1 applic Ondansetron HCl (Zofran Inj) 4 mg IVP Q6H PRN PRN Reason: Nausea/Vomiting Last Admin: 09/22/16 17:41 Dose: 4 mg Oxycodone/Acetaminophen (Percocet 5/325 Mg Tab) 1 tab PO Q8H PRN PRN Reason: Pain, moderate (4-7) Stop: 09/24/16 09:57 Phenytoin Sodium (Dilantin) 100 mg PO TID [facility] Last Admin: 09/23/16 10:16 Dose: 100 mg Rosuvastatin Calcium (Crestor) 20 mg PO HS [facility] Last Admin: 09/22/16 22:17 Dose: 20 mg - Labs Labs: 09/23/16 07:45 09/23/16 07:45 PT 11.5 SECONDS (9.7-12.2) 09/20/16 16:52 INR 1.0 09/20/16 16:52 APTT 31 SECONDS (21-34) 09/20/16 16:52 - Constitutional Appears: Non-toxic, No Acute Distress - Head Exam Head Exam: ATRAUMATIC, NORMOCEPHALIC - Eye Exam Eye Exam: EOMI. absent: Scleral icterus - Respiratory Exam Respiratory Exam: Clear to Ausculation Bilateral, NORMAL BREATHING PATTERN. absent: Accessory Muscle Use, Respiratory Distress - Cardiovascular Exam Cardiovascular Exam: REGULAR RHYTHM, RRR, +S1, +S2. absent: Tachycardia, JVD - GI/Abdominal Exam GI & Abdominal Exam: Soft, Normal Bowel Sounds - Extremities Exam Extremities Exam: absent: Pedal Edema, Tenderness - Neurological Exam Neurological Exam: Alert, Awake, CN II-XII Intact, Oriented x3 Neuro motor strength exam: Left Upper Extremity: 5, Right Upper Extremity: 4, Left Lower Extremity: 5, Right Lower Extremity: 4 Additional comments: Weakness on R side is baseline for her since her stroke in 2004. Less sensation on R side of face. This is normal for her since her stroke in 2004. - Psychiatric Exam Psychiatric exam: Normal Affect, Normal Mood - Skin Skin Exam: Dry, Intact, Warm Assessment and Plan - Assessment and Plan (Free Text) Assessment: 61 year old female with PMHx of seizures, hx of CVA in 2004, AVMs that presented to the ED for worsening facial droop and weakness Plan: (1) Large AV malformation -CT Head w/o contrast: Multiple hyperdense masses within the left parietal, frontal and temporal lobe with calcifications and slight mass effect with midline shift. These are nonspecific in appearance. No intracranial hemorrhage -As per neurosurgery Dr. Hyatt: no surgical intervention. Recommends optimal medical mgmt with seizure ppx and headache control and BP control and no anticoagulants -Brain MRI w/ and w/o contrast: large left temporal pariental AVM with large draining vein extending to the posterior aspect of the sagittal dural sinus; AVM resulting in mild mass effect on the posterior left lateral ventricle and mild left to right midline shift measures approx 6mm; no MRI evidence of acute intracranial hemorrhage or acute pathology -Head MRA: no evidence of hemodynamically significant stenosis/occlusion in intracranial arteries; Left middle anterior and posterior cerebral arteries are larger than the right; large size L temporal parietal AVM -Tylenol 650mg PO Q6 PRN mild pain -Percocet 5/325mg PO Q8H PRN mod pain -Morphine 2mg IVP Q4 PRN pain severe -Zofran 4mg IVP Q6H PRN nausea -Phenytoin 100mg PO TID -Crestor 20mg PO QHS -Keppra 500mg IVPB Q12 -Regular Diet -Patient was given 1 dose of IV Magsulfate and IV decadron on 09/21 for headache as per Dr. Junior [facility] -Neurosurgery consult: Dr. Bowers/Dr. Mcdonough -Neurology consult: Dr. Junior (2) History of seizure -Phenytoin level < 3 -Phenytoin 100mg PO TID -Keppra 500mg IVPB Q12 -Neurology consult: Dr. Junior (3) Hyperlipidemia -Cholesterol 240 -LDL 141 -HDL 62 -Crestor 20mg po QHS (4) External hemorrhoid -Hemorrhoidal ointment top (5) Prophylactic measure -Pepcid 20mg PO BID -VTE ppx c/i -SCDs -Regular diet -NS @ 75cc/hr -PT/OT -Speech therapy -Fall risk -Seizure precautions -Discharge to [facility] with placement Plan discussed with Dr. Ban Larkin PGY1
--- NOTE | 2016-09-23 12:50 | CP.PCM.PN ---
Subjective - Date & Time of Evaluation Date of Evaluation: 09/22/16 Time of Evaluation: 11:30 - Subjective Subjective: Mrs. Wagner was seen and examined today at bedside. Her daughters were present and had some questions regarding the patient's management and follow-up plan. I discussed the findings of the MRI/MRA and let them know about the anti- epileptic medications. The family was interested in further exploring neurointerventional options for treatment. Objective - Vital Signs/Intake and Output Vital Signs (last 24 hours): Temp Pulse Resp BP Pulse Ox 98.2 F 75 18 137/62 96 09/22/16 15:45 09/22/16 15:45 09/22/16 15:45 09/22/16 15:45 09/22/16 15:45 - Medications Medications: Current Medications Acetaminophen (Tylenol 325mg Tab) 650 mg PO Q6 PRN PRN Reason: Pain, Mild (1-3) Last Admin: 09/21/16 13:43 Dose: 650 mg Docusate Sodium (Colace) 100 mg PO DAILY [facility] Last Admin: 09/22/16 17:41 Dose: 100 mg Famotidine (Pepcid) 20 mg PO BID [facility] Last Admin: 09/22/16 17:41 Dose: 20 mg Sodium Chloride (Sodium Chloride 0.9%) 1,000 mls @ 75 mls/hr IV .[id number] [facility] Last Admin: 09/22/16 07:33 Dose: 75 mls/hr Levetiracetam (Keppra) 500 mg PO BID [facility] Last Admin: 09/22/16 17:41 Dose: 500 mg Morphine Sulfate (Morphine) 2 mg IVP Q4 PRN PRN Reason: Pain, severe (8-10) Last Admin: 09/21/16 09:43 Dose: 2 mg Multi-Ingredient Ointment (Prep-Hem) 0 ea TOP Q8 [facility] Last Admin: 09/22/16 13:17 Dose: 1 applic Ondansetron HCl (Zofran Inj) 4 mg IVP Q6H PRN PRN Reason: Nausea/Vomiting Last Admin: 09/22/16 17:41 Dose: 4 mg Oxycodone/Acetaminophen (Percocet 5/325 Mg Tab) 1 tab PO Q8H PRN PRN Reason: Pain, moderate (4-7) Stop: 09/24/16 09:57 Phenytoin Sodium (Dilantin) 100 mg PO TID [facility] Last Admin: 09/22/16 17:41 Dose: 100 mg Rosuvastatin Calcium (Crestor) 20 mg PO HS [facility] Last Admin: 09/21/16 21:57 Dose: 20 mg - Labs Labs: PT 11.5 SECONDS (9.7-12.2) 09/20/16 16:52 INR 1.0 09/20/16 16:52 APTT 31 SECONDS (21-34) 09/20/16 16:52 - Constitutional Appears: Well - Head Exam Head Exam: ATRAUMATIC - Eye Exam Eye Exam: EOMI, Normal appearance, PERRL - ENT Exam ENT Exam: Mucous Membranes Moist, Normal Exam - Neck Exam Neck Exam: Full ROM, Normal Inspection. absent: Lymphadenopathy - Respiratory Exam Respiratory Exam: Clear to Ausculation Bilateral, NORMAL BREATHING PATTERN - Cardiovascular Exam Cardiovascular Exam: REGULAR RHYTHM, +S1, +S2. absent: Murmur - GI/Abdominal Exam GI & Abdominal Exam: Soft, Normal Bowel Sounds. absent: Tenderness - Neurological Exam Neurological Exam: Abnormal Gait, CN II-XII Intact, Oriented x3 Neuro motor strength exam: Left Upper Extremity: 5, Right Upper Extremity: 4, Left Lower Extremity: 5, Right Lower Extremity: 4 - Psychiatric Exam Psychiatric exam: Normal Affect, Normal Mood - Skin Skin Exam: Dry, Intact, Normal Color, Warm Assessment and Plan (1) AVM (arteriovenous malformation) brain Assessment & Plan: Will discuss the case with neurointerventional and continue current AEDs. PT/ OT is recommended. I will continue following the patient along with the primary team. Status: Chronic
--- NOTE | 2016-09-23 12:55 | CP.PCM.PN ---
Subjective - Date & Time of Evaluation Date of Evaluation: 09/23/16 Time of Evaluation: 11:00 - Subjective Subjective: Mrs. Wagner was seen and examined today at bedside. I introduced her to Dr. Friedman (neuro-interventionalist) who was present with me and discussed her case with her. She will be referred to him as an outpatient for follow-up and potential further embolization of the AVM. Her questions were answered and contact information was provided. She had no complaints. There were no overnight events. No seizures. Her headache was down to a 4/10 in severity. No nausea, visual changes, new weakness, word-finding difficulties or sensory changes. Objective - Vital Signs/Intake and Output Vital Signs (last 24 hours): Temp Pulse Resp BP Pulse Ox 98.1 F 69 20 105/64 94 L 09/23/16 09:15 09/23/16 09:21 09/23/16 09:15 09/23/16 09:15 09/23/16 04:38 Intake and Output: 09/23/16 09/23/16 06:59 18:59 Intake Total 920 Balance 920 - Medications Medications: Current Medications Acetaminophen (Tylenol 325mg Tab) 650 mg PO Q6 PRN PRN Reason: Pain, Mild (1-3) Last Admin: 09/21/16 13:43 Dose: 650 mg Docusate Sodium (Colace) 100 mg PO DAILY [facility] Last Admin: 09/23/16 10:16 Dose: 100 mg Famotidine (Pepcid) 20 mg PO BID [facility] Last Admin: 09/23/16 10:20 Dose: 20 mg Sodium Chloride (Sodium Chloride 0.9%) 1,000 mls @ 75 mls/hr IV .[id number] [facility] Last Admin: 09/23/16 04:25 Dose: 75 mls/hr Levetiracetam (Keppra) 500 mg PO BID [facility] Last Admin: 09/23/16 10:16 Dose: 500 mg Morphine Sulfate (Morphine) 2 mg IVP Q4 PRN PRN Reason: Pain, severe (8-10) Last Admin: 09/21/16 09:43 Dose: 2 mg Multi-Ingredient Ointment (Prep-Hem) 0 ea TOP Q8 [facility] Last Admin: 09/23/16 06:03 Dose: 1 applic Ondansetron HCl (Zofran Inj) 4 mg IVP Q6H PRN PRN Reason: Nausea/Vomiting Last Admin: 09/22/16 17:41 Dose: 4 mg Oxycodone/Acetaminophen (Percocet 5/325 Mg Tab) 1 tab PO Q8H PRN PRN Reason: Pain, moderate (4-7) Stop: 09/24/16 09:57 Phenytoin Sodium (Dilantin) 100 mg PO TID [facility] Last Admin: 09/23/16 10:16 Dose: 100 mg Rosuvastatin Calcium (Crestor) 20 mg PO HS [facility] Last Admin: 09/22/16 22:17 Dose: 20 mg - Labs Labs: 09/23/16 07:45 09/23/16 07:45 PT 11.5 SECONDS (9.7-12.2) 09/20/16 16:52 INR 1.0 09/20/16 16:52 APTT 31 SECONDS (21-34) 09/20/16 16:52 - Constitutional Appears: Well - Head Exam Head Exam: ATRAUMATIC, NORMAL INSPECTION, NORMOCEPHALIC - Eye Exam Eye Exam: EOMI, Normal appearance, PERRL - ENT Exam ENT Exam: Mucous Membranes Moist, Normal Exam - Cardiovascular Exam Cardiovascular Exam: REGULAR RHYTHM, +S1, +S2. absent: Murmur - GI/Abdominal Exam GI & Abdominal Exam: Soft, Normal Bowel Sounds. absent: Tenderness - Neurological Exam Neurological Exam: Abnormal Gait, Awake, CN II-XII Intact, Oriented x3 Neuro motor strength exam: Left Upper Extremity: 4, Right Upper Extremity: 4, Left Lower Extremity: 4, Right Lower Extremity: 4 - Psychiatric Exam Psychiatric exam: Normal Affect, Normal Mood Assessment and Plan (1) AVM (arteriovenous malformation) brain Assessment & Plan: Continue Keppra at 500 mg BID for seizure prophylaxis as well as dilantin at 100 mg TID. PT/OT and speech therapy. Follow-up with neuro-interventional as an outpatient and neurology as an outpatient. Status: Chronic
[2016-09-23 16:31] VITALS: BP 100/63; PULSE 79; TEMP 98.4; O2SAT 96
--- NOTE | 2016-09-23 17:39 | CP.PCM.DIS ---
<Comfort Larkin - Last Filed: 09/25/16 05:49> Provider - Provider Date of Admission: 09/22/16 11:13 Attending physician: Wm Cevallos MD Consults: Dr. Junior neurology Dr. Hyatt neurosurgery Time Spent in preparation of Discharge (in minutes): 45 Hospital Course - Lab Results Lab Results: Most Recent Lab Values WBC 8.2 K/uL (4.8-10.8) D 09/23/16 07:45 RBC 3.97 Mil/uL (3.80-5.20) 09/23/16 07:45 Hgb 12.3 g/dL (11.0-16.0) 09/23/16 07:45 Hct 37.0 % (34.0-47.0) 09/23/16 07:45 MCV 93.3 fL (81.0-99.0) 09/23/16 07:45 MCH 30.9 pg (27.0-31.0) 09/23/16 07:45 MCHC 33.1 g/dL (33.0-37.0) 09/23/16 07:45 RDW 13.7 % (11.5-14.5) 09/23/16 07:45 Plt Count 171 K/uL (130-400) 09/23/16 07:45 MPV 9.0 fL (7.2-11.7) 09/23/16 07:45 Neut % (Auto) 48.8 % (50.0-75.0) L 09/23/16 07:45 Lymph % (Auto) 39.1 % (20.0-40.0) 09/23/16 07:45 [place] % (Auto) 9.9 % (0.0-10.0) 09/23/16 07:45 Eos % (Auto) 1.8 % (0.0-4.0) 09/23/16 07:45 Baso % (Auto) 0.4 % (0.0-2.0) 09/23/16 07:45 Neut # 4.0 K/uL (1.8-7.0) 09/23/16 07:45 Lymph # 3.2 K/uL (1.0-4.3) 09/23/16 07:45 [place] # 0.8 K/uL (0.0-0.8) 09/23/16 07:45 Eos # 0.1 K/uL (0.0-0.7) 09/23/16 07:45 Baso # 0.0 K/uL (0.0-0.2) 09/23/16 07:45 PT 11.5 SECONDS (9.7-12.2) 09/20/16 16:52 INR 1.0 09/20/16 16:52 APTT 31 SECONDS (21-34) 09/20/16 16:52 Sodium 137 mmol/L (132-148) 09/23/16 07:45 Potassium 3.7 mmol/L (3.6-5.2) 09/23/16 07:45 Chloride 104 mmol/L (98-107) 09/23/16 07:45 Carbon Dioxide 26 mmol/L (22-30) 09/23/16 07:45 Anion Gap 11 (10-20) 09/23/16 07:45 BUN 9 mg/dL (7-17) 09/23/16 07:45 Creatinine 0.7 MG/DL (0.7-1.2) 09/23/16 07:45 Est GFR ( Amer) > 60 09/23/16 07:45 Est GFR (Non-Af Amer) > 60 09/23/16 07:45 POC Glucose (mg/dL) 114 mg/dL (65-110) H 09/23/16 16:53 Random Glucose 87 mg/dL (65-105) 09/23/16 07:45 Hemoglobin A1c 5.2 % (4.2-6.5) 09/21/16 07:13 Calcium 7.6 mg/dl (8.6-10.4) L 09/23/16 07:45 Phosphorus 2.4 mg/dL (2.5-4.5) L 09/23/16 07:45 Magnesium 2.3 mg/dL (1.6-2.3) 09/23/16 07:45 Total Bilirubin 0.5 mg/dL (0.2-1.3) 09/23/16 07:45 AST 27 U/L (14-36) 09/23/16 07:45 ALT 48 U/L (9-52) 09/23/16 07:45 Alkaline Phosphatase 67 U/L (38-126) 09/23/16 07:45 Troponin I < 0.0120 ng/mL (0.00-0.120) 09/20/16 16:52 NT-Pro-B Natriuret Pep 79.0 pg/mL (0-900) 09/20/16 16:52 Total Protein 6.4 g/dL (6.3-8.3) 09/23/16 07:45 Albumin 3.3 g/dL (3.5-5.0) L 09/23/16 07:45 Globulin 3.0 gm/dL (2.2-3.9) 09/23/16 07:45 Albumin/Globulin Ratio 1.1 (1.0-2.1) 09/23/16 07:45 Triglycerides 99 mg/dL (0-149) D 09/20/16 16:52 Cholesterol 240 mg/dL (0-199) H 09/20/16 16:52 LDL Cholesterol Direct 141 mg/dL (0-129) H 09/20/16 16:52 HDL Cholesterol 62 mg/dL (30-70) 09/20/16 16:52 TSH 3rd Generation 1.74 mIU/L (0.46-4.68) 09/21/16 07:13 Urine Color Yellow (YELLOW) 09/21/16 07:18 Urine Clarity Hazy (Clear) 09/21/16 07:18 Urine pH 5.0 (5.0-8.0) 09/21/16 07:18 Ur Specific [place] 1.020 (1.003-1.030) 09/21/16 07:18 Urine Protein Negative mg/dL (NEGATIVE) 09/21/16 07:18 Urine Glucose (UA) Normal mg/dL (Normal) 09/21/16 07:18 Urine Ketones Negative mg/dL (NEGATIVE) 09/21/16 07:18 Urine Blood 1+ (NEGATIVE) H 09/21/16 07:18 Urine Nitrate Negative (NEGATIVE) 09/21/16 07:18 Urine Bilirubin Negative (NEGATIVE) 09/21/16 07:18 Urine Urobilinogen Normal mg/dL (0.2-1.0) 09/21/16 07:18 Ur Leukocyte Esterase 1+ Mar[place]/uL (Negative) H 09/21/16 07:18 Urine WBC (Auto) 6 /hpf (0-5) H 09/21/16 07:18 Urine RBC (Auto) 5 /hpf (0-3) H 09/21/16 07:18 Ur Squamous Epith Cells 8 /hpf (0-5) H 09/21/16 07:18 Phenytoin 16.3 ug/mL (10-20) 09/22/16 20:07 Blood Type A POSITIVE 09/20/16 16:52 Antibody Screen Negative 09/20/16 16:52 - Hospital Course Hospital Course: Upon Admission Patient is a 61 year old female with PMHx of seizures, hx of CVA in 2004, AVMs that presented to the ED for worsening facial droop and weakness. Patient is awake and alert but unable to answer questions appropriately. Daughter at bedside giving history. Patient reported a headache around 9am today, which was relatively mild and similar to other headaches she normally has had. The daughter went to work and returned around noon to serve the patient lunch. At that time, the patient was complaining of a very severe headache, worse than she 's ever had. The daughter said that the patient had residual mild left sided facial droop and right UE and LE weakness from the previous stroke, but during lunch, she noticed that the facial worsened significantly, and that the patient was unable to lift the spoon to her mouth to drink the soup. At baseline, patient is, at times, forgetful and not fully oriented. On admission, patient did not know her own name, or her daughters name. She was able to identify that the person at bedside was her daughter, and recalled she had another daughter. Not oriented to time or place. Last visit to her neurologist, Dr. Mansoor Andrews, was about 2-3 months ago. Patient's AVM was followed at [facility], by a neurosurgeon , Dr. Charles Shanks, last seen 2-3 years ago, who said that he did not feel comfortable doing any surgeries for her due to the high risk of complications. Patient admitted to [facility]. CT Head w/o contrast showed Multiple hyperdense masses within the left parietal, frontal and temporal lobe with calcifications and slight mass effect with midline shift. These are nonspecific in appearance. No intracranial hemorrhage. As per neurosurgery Dr. Hyatt: no surgical intervention. Recommends optimal medical mgmt with seizure ppx and headache control and BP control and no anticoagulants. Brain MRI w/ and w/o contrast showed large left temporal pariental AVM with large draining vein extending to the posterior aspect of the sagittal dural sinus; AVM resulting in mild mass effect on the posterior left lateral ventricle and mild left to right midline shift measures approx 6mm; no MRI evidence of acute intracranial hemorrhage or acute pathology and Head MRA showed no evidence of hemodynamically significant stenosis/occlusion in intracranial arteries; Left middle anterior and posterior cerebral arteries are larger than the right; large size L temporal parietal AVM. Neurology Dr. Junior recommended 1 dose of IV Magsulfate and IV decadron which was administered to patient. Patient was also dosed with phenytoin and then continued on a standing dose and given Keppra as seizure ppx. Patient's headache was controlled and on day of discharge patient was deemed medically stable for discharge to [facility]. (1) Large AV malformation: patient prescribed new medications- to f/u with PMD and neurologist outpatient (2) History of seizure: patient prescribed new medications (3) Hyperlipidemia: patinet to continue home medications (4) External hemorrhoid: patient prescribed new medications Upon Discharge: Please discharge patient to [facility] when transportation is available as per Dr. Cevallos. Patient is to continue medications as directed. Patient is to followup with Dr. Friedman, neuro interventionologist, in [place] , after discharge. Patient is to followup with her PMD in 1 week. If symptoms worsen, patient is to return to the hospital for further evaluation and treatment. Please discharge patient with heplock in place Discharge Exam - Head Exam Head Exam: ATRAUMATIC, NORMAL INSPECTION, NORMOCEPHALIC - Eye Exam Eye Exam: Normal appearance. absent: Conjunctival injection, Scleral icterus - ENT Exam ENT Exam: Mucous Membranes Moist - Neck Exam Neck exam: Normal Inspection - Respiratory Exam Respiratory Exam: Clear to PA & Lateral, NORMAL BREATHING PATTERN. absent: Rales, Rhonchi, Wheezes - Cardiovascular Exam Cardiovascular Exam: REGULAR RHYTHM, +S1, +S2. absent: Systolic Murmur - GI/Abdominal Exam GI & Abdominal Exam: Normal Bowel Sounds, Soft. absent: Tenderness - Back Exam Back exam: NORMAL INSPECTION. absent: rash noted - Neurological Exam Neurological exam: Alert, CN II-XII Intact, Oriented x3 - Psychiatric Exam Psychiatric exam: Normal Affect, Normal Mood - Skin Skin Exam: Dry, Intact, Normal Color, Warm Discharge Plan - Follow Up Plan Condition: FAIR Disposition: REHAB FACILITY/REHAB UNIT Instructions: Arteriovenous Malformation (DC), Arteriovenous Malformation (GEN) , Altered Mental Status (GEN) Additional Instructions: Please discharge patient to [facility] when transportation is available as per Dr. Cevallos. Patient is to continue medications as directed. Patient is to followup with Dr. Friedman, neuro interventionologist, in [place], after discharge. Patient is to followup with her PMD in 1 week. If symptoms worsen, patient is to return to the hospital for further evaluation and treatment. Referrals: Gildardo Friedman MD [Medical Doctor] - <Wm Cevallos - Last Filed: 09/25/16 17:28> Provider - Provider Date of Admission: 09/22/16 11:13 Attending physician: Wm Cevallos MD Hospital Course - Lab Results Lab Results: Most Recent Lab Values WBC 8.2 K/uL (4.8-10.8) D 09/23/16 07:45 RBC 3.97 Mil/uL (3.80-5.20) 09/23/16 07:45 Hgb 12.3 g/dL (11.0-16.0) 09/23/16 07:45 Hct 37.0 % (34.0-47.0) 09/23/16 07:45 MCV 93.3 fL (81.0-99.0) 09/23/16 07:45 MCH 30.9 pg (27.0-31.0) 09/23/16 07:45 MCHC 33.1 g/dL (33.0-37.0) 09/23/16 07:45 RDW 13.7 % (11.5-14.5) 09/23/16 07:45 Plt Count 171 K/uL (130-400) 09/23/16 07:45 MPV 9.0 fL (7.2-11.7) 09/23/16 07:45 Neut % (Auto) 48.8 % (50.0-75.0) L 09/23/16 07:45 Lymph % (Auto) 39.1 % (20.0-40.0) 09/23/16 07:45 [place] % (Auto) 9.9 % (0.0-10.0) 09/23/16 07:45 Eos % (Auto) 1.8 % (0.0-4.0) 09/23/16 07:45 Baso % (Auto) 0.4 % (0.0-2.0) 09/23/16 07:45 Neut # 4.0 K/uL (1.8-7.0) 09/23/16 07:45 Lymph # 3.2 K/uL (1.0-4.3) 09/23/16 07:45 [place] # 0.8 K/uL (0.0-0.8) 09/23/16 07:45 Eos # 0.1 K/uL (0.0-0.7) 09/23/16 07:45 Baso # 0.0 K/uL (0.0-0.2) 09/23/16 07:45 PT 11.5 SECONDS (9.7-12.2) 09/20/16 16:52 INR 1.0 09/20/16 16:52 APTT 31 SECONDS (21-34) 09/20/16 16:52 Sodium 137 mmol/L (132-148) 09/23/16 07:45 Potassium 3.7 mmol/L (3.6-5.2) 09/23/16 07:45 Chloride 104 mmol/L (98-107) 09/23/16 07:45 Carbon Dioxide 26 mmol/L (22-30) 09/23/16 07:45 Anion Gap 11 (10-20) 09/23/16 07:45 BUN 9 mg/dL (7-17) 09/23/16 07:45 Creatinine 0.7 MG/DL (0.7-1.2) 09/23/16 07:45 Est GFR ( Amer) > 60 09/23/16 07:45 Est GFR (Non-Af Amer) > 60 09/23/16 07:45 POC Glucose (mg/dL) 114 mg/dL (65-110) H 09/23/16 16:53 Random Glucose 87 mg/dL (65-105) 09/23/16 07:45 Hemoglobin A1c 5.2 % (4.2-6.5) 09/21/16 07:13 Calcium 7.6 mg/dl (8.6-10.4) L 09/23/16 07:45 Phosphorus 2.4 mg/dL (2.5-4.5) L 09/23/16 07:45 Magnesium 2.3 mg/dL (1.6-2.3) 09/23/16 07:45 Total Bilirubin 0.5 mg/dL (0.2-1.3) 09/23/16 07:45 AST 27 U/L (14-36) 09/23/16 07:45 ALT 48 U/L (9-52) 09/23/16 07:45 Alkaline Phosphatase 67 U/L (38-126) 09/23/16 07:45 Troponin I < 0.0120 ng/mL (0.00-0.120) 09/20/16 16:52 NT-Pro-B Natriuret Pep 79.0 pg/mL (0-900) 09/20/16 16:52 Total Protein 6.4 g/dL (6.3-8.3) 09/23/16 07:45 Albumin 3.3 g/dL (3.5-5.0) L 09/23/16 07:45 Globulin 3.0 gm/dL (2.2-3.9) 09/23/16 07:45 Albumin/Globulin Ratio 1.1 (1.0-2.1) 09/23/16 07:45 Triglycerides 99 mg/dL (0-149) D 09/20/16 16:52 Cholesterol 240 mg/dL (0-199) H 09/20/16 16:52 LDL Cholesterol Direct 141 mg/dL (0-129) H 09/20/16 16:52 HDL Cholesterol 62 mg/dL (30-70) 09/20/16 16:52 TSH 3rd Generation 1.74 mIU/L (0.46-4.68) 09/21/16 07:13 Urine Color Yellow (YELLOW) 09/21/16 07:18 Urine Clarity Hazy (Clear) 09/21/16 07:18 Urine pH 5.0 (5.0-8.0) 09/21/16 07:18 Ur Specific [place] 1.020 (1.003-1.030) 09/21/16 07:18 Urine Protein Negative mg/dL (NEGATIVE) 09/21/16 07:18 Urine Glucose (UA) Normal mg/dL (Normal) 09/21/16 07:18 Urine Ketones Negative mg/dL (NEGATIVE) 09/21/16 07:18 Urine Blood 1+ (NEGATIVE) H 09/21/16 07:18 Urine Nitrate Negative (NEGATIVE) 09/21/16 07:18 Urine Bilirubin Negative (NEGATIVE) 09/21/16 07:18 Urine Urobilinogen Normal mg/dL (0.2-1.0) 09/21/16 07:18 Ur Leukocyte Esterase 1+ [place]/uL (Negative) H 09/21/16 07:18 Urine WBC (Auto) 6 /hpf (0-5) H 09/21/16 07:18 Urine RBC (Auto) 5 /hpf (0-3) H 09/21/16 07:18 Ur Squamous Epith Cells 8 /hpf (0-5) H 09/21/16 07:18 Phenytoin 16.3 ug/mL (10-20) 09/22/16 20:07 Blood Type A POSITIVE 09/20/16 16:52 Antibody Screen Negative 09/20/16 16:52 Attending/Attestation - Attestation I have personally seen and examined this patient.: Yes I have fully participated in the care of the patient.: Yes I have reviewed all pertinent clinical information, including history, physical exam and plan: Yes Notes (Text): 09/25/16 17:27 Patient was seen and examined at bedside with the resident Patient to states that she is feeling better Headache is improving Discussed with the neurologist. Patient is clear for discharge She will follow-up with the interventional neurologist as outpatient I agree with the discharge note by the resident.
== END 2016-09-23 18:56 | DRG 100 ==
LOC: C.ER 16:21 → C.9OBSV 17:52 → C.9E 17:52 → C.6T 19:33 → OBSVTOIN 09-22 11:13
PROVIDERS: ADMIT Hospitalist; ATTEND Internal Medicine
DX: G40.89 Other seizures (principal); Q28.2 Arteriovenous malformation of cerebral vessels; I69.351 Hemiplegia and hemiparesis following cerebral infarction affecting right dominant side; I69.392 Facial weakness following cerebral infarction; Z87.891 Personal history of nicotine dependence; E78.5 Hyperlipidemia, unspecified; K64.4 Residual hemorrhoidal skin tags; K59.00 Constipation, unspecified; R51 Headache; R42 Dizziness and giddiness